=== PATIENT | male | born 1980 | race Caucasian/White ===

== ENCOUNTER 2016-07-01 12:39 | Emergency (ER) | payer MEDICAID, OTHER ==
[2016-07-01 12:57] VITALS: BP 155/95
--- NOTE | 2016-07-01 13:24 | UC ---
Ear Complaint HPI - HPI Summary HPI Summary: 3-4 weeks ago pt developed flu-like illness with fever x 4 days, cough, nasal congestion, n/v/d, and body aches. Most symptoms gradually improved over 1-2 weeks, but continues to have PND with laryngitis and R ear feeling plugged. Hx of wax problems in R ear. - History of Current Complaint Chief Complaint: UCRespiratory Stated Complaint: EAR PAIN SORE THROAT Time Seen by Provider: 07/01/16 12:57 Hx Obtained From: Patient Onset/Duration: Gradual Onset, Lasting Weeks Severity Initially: Moderate Severity Currently: Mild Associated Signs/Symptoms: Positive: Hearing Loss, URI Symptoms - Allergies/Home Medications Allergies/Adverse Reactions: Allergies Allergy/AdvReac Type Severity Reaction Status Date / Time Eggs or Egg-derived Products Allergy GI Upset Verified 07/01/16 12:58 Home Medications: Home Medications Bcpjmwe-Mrrludsvceajo-Zzxcieoi [Excedrin Extra Strength] 1 tab PO 07/01/16 [ History] PMH/Surg Hx/FS Hx/Imm Hx Endocrine History Of: Denies: Diabetes, Thyroid Disease Cardiovascular History Of: Denies: Cardiac Disorders, Hypertension Respiratory History Of: Denies: COPD, Asthma GI/ History Of: Denies: Ulcer - Surgical History Surgical History: Yes Surgery Procedure, Year, and Place: t&a. wisdom teeth - Family History Known Family History: Negative: Blood Disorder - Social History Alcohol Use: Weekly Alcohol Amount: x1 Substance Use Type: None Substance Use Comment - Amount & Last Used: once monthly Smoking Status (MU): Never Smoked Tobacco Review of Systems Constitutional: Negative Skin: Negative Eyes: Negative ENT: Ear Ache, Nasal Discharge Respiratory: Negative Cardiovascular: Negative Gastrointestinal: Negative Genitourinary: Negative Motor: Negative Neurovascular: Negative Musculoskeletal: Negative Neurological: Negative Psychological: Negative All Other Systems Reviewed And Are Negative: Yes Physical Exam Triage Information Reviewed: Yes Appearance: Well-Appearing, No Pain Distress, Well-Nourished Vital Signs: Initial Vital Signs Temp 99.2 F 07/01/16 12:54 Pulse 89 07/01/16 12:54 Resp 18 07/01/16 12:54 BP 155/95 07/01/16 12:54 Pulse Ox 99 07/01/16 12:54 Vital Signs Reviewed: Yes Eye Exam: Normal Eyes: Positive: Conjunctiva Clear ENT: Positive: Hearing grossly normal, Pharynx normal, Nasal congestion, TMs normal - post flush, Other: - R cerumen impaction Neck exam: Normal Respiratory Exam: Normal Respiratory: Positive: Chest non-tender, Lungs clear, Normal breath sounds, No respiratory distress, No accessory muscle use Cardiovascular Exam: Normal Cardiovascular: Positive: RRR, No Murmur Musculoskeletal Exam: Normal Neurological Exam: Normal Psychological Exam: Normal Skin Exam: Normal Ear Complaint Course/Dx - Differential Dx/Diagnosis Provider Diagnoses: cerumen impaction. sinusitis Discharge - Discharge Plan Condition: Stable Disposition: HOME Prescriptions: Mometasone NASAL (NF) [Nasonex (NF)] 2 spray BOTH NARES DAILY #1 nasal.spr Patient Education Materials: Cerumen Impaction (ED), Rhinosinusitis (ED) Additional Instructions: If you do not feel some improvement over the next 2 weeks, please call or return for re-evaluation. If you have increasing pain, fever, or facial swelling you may need antibiotics. If that happens you should return right away.
== END 2016-07-01 13:59 | disposition home or self-care (01) ==
LOC: UCEAST 12:39
DX: J32.9 Chronic sinusitis, unspecified (principal); H61.21 Impacted cerumen, right ear
CPT/HCPCS: 99213; G0463

== ENCOUNTER 2016-08-09 09:13 | Emergency (ER) | payer MEDICAID ==
--- NOTE | 2016-08-09 11:04 | UC ---
Jose Adhikari Salem, scribed for Jayne Sheehan MD on 08/09/16 at 1051 . Bite Injury/Animal HPI - HPI Summary HPI Summary: Patient is 35 y/o male who presents to the with deer tick bites since yesterday. He states that he found 3 ticks attached to his lateral abd and pulled them off with tweezers. He also found an additional 14 in his pants. He states that the ticks could not have been on him for more than 1 hour. Thery were all small, none were engorged. No bleeding from site of tick removal. No h/o lymes. He also states that he was in the [place] for a total of 6 hours yesterday and that he will be in the ortiz for the next 5 weeks. Pt works in the [employer] industry. He denies fever, chills, nausea, but reports high bp for the first time.However, pt found out that he was going to be a father yesterday night. He denies taking any medication and states that he is allergic to anything that has egg in it. Patients medication reviewed this visit. - History of Current Complaint Chief Complaint: UCSkin Stated Complaint: TICK BITE Time Seen by Provider: 08/09/16 10:41 Hx Obtained From: Patient Severity Currently: Moderate Severity Initially: Moderate Onset/Duration: Gradual Onset, Lasting Days Type of Bite: Animal - Tick. Has Animal Been Immunized?: N/A Aggravating Factor(s): Nothing Alleviating Factor(s): Nothing Associated Signs And Symptoms: Negative: Fever - Allergies/Home Medications Allergies/Adverse Reactions: Allergies Allergy/AdvReac Type Severity Reaction Status Date / Time Eggs or Egg-derived Products Allergy GI Upset Verified 08/09/16 09:41 Home Medications: Home Medications NK [No Home Medications Reported] 08/09/16 [History Confirmed 08/09/16] PMH/Surg Hx/FS Hx/Imm Hx Previously Healthy: Yes Endocrine History Of: Denies: Diabetes, Thyroid Disease Cardiovascular History Of: Denies: Cardiac Disorders, Hypertension Respiratory History Of: Denies: COPD, Asthma GI/ History Of: Denies: Ulcer - Surgical History Surgical History: Yes Surgery Procedure, Year, and Place: t&a. wisdom teeth - Family History Known Family History: Negative: Blood Disorder - Social History Occupation: Employed Full-time Alcohol Use: Weekly Alcohol Amount: x1 Substance Use Type: None Substance Use Comment - Amount & Last Used: once monthly Smoking Status (MU): Never Smoked Tobacco Review of Systems Constitutional: Other - Tick bites. Skin: Other - tick bites Eyes: Negative ENT: Negative Respiratory: Negative Cardiovascular: Negative Gastrointestinal: Negative Genitourinary: Negative Motor: Negative Neurovascular: Negative Musculoskeletal: Negative Neurological: Negative Psychological: Negative All Other Systems Reviewed And Are Negative: Yes Physical Exam Triage Information Reviewed: Yes Appearance: Well-Appearing, No Pain Distress, Well-Nourished Vital Signs: Initial Vital Signs Temp 97.7 F 08/09/16 09:38 Pulse 70 08/09/16 09:38 Resp 20 08/09/16 09:38 BP 153/105 08/09/16 09:38 Pulse Ox 100 08/09/16 09:38 Vital Signs Reviewed: Yes Eye Exam: Normal Eyes: Positive: Conjunctiva Clear ENT Exam: Normal ENT: Positive: TMs normal Dental Exam: Normal Neck exam: Normal Neck: Positive: Supple Respiratory Exam: Normal Respiratory: Positive: Chest non-tender, Lungs clear Cardiovascular Exam: Normal Cardiovascular: Positive: RRR, No Murmur, Pulses Normal Abdominal Exam: Normal Abdomen Description: Positive: Nontender, No Organomegaly, Soft Bowel Sounds: Positive: Present Musculoskeletal Exam: Normal Neurological Exam: Normal Neurological: Positive: Alert Psychological Exam: Normal Skin Exam: Normal Skin: Positive: Other - no wounds, rashes, no attached ticks Bite Injury Course/Dx - Course Course Of Treatment: Blood pressure noted and patient informed to follow up with PCP - will give him a referral . Pt with tick bite exposure yesterday- none > 1 hour, none engorged - Differential Dx/Diagnosis Provider Diagnoses: tick bite exposure Discharge - Discharge Plan Condition: Stable Disposition: HOME Patient Education Materials: Tick Bite (ED), Hypertension (ED) Referrals: [facility]IAN REFERRAL [Outside] No Primary Care Phys,NOPCP [Primary Care Provider] - Additional Instructions: Lyme disease is not typically transmitted unless a tick has been attached for 48 hours. Ticks become engorged with blood and large over the course of this time. It is recommended you keep all skin surfaces covered if you are in a wooded area or working in high grasses or weeds Have someone thoroughly check your skin for ticks when you come in from outside - take of your clothing in one location and place immediately in the laundry Your blood pressure was high today. It is recommended you follow this closely - you have been given a referral to the physician referral center - they will assist with scheduling follow up with a primary care provider You should return to the emergency department if you develop headaches, vision changes, shortness of breath, chest pain or any other concerning symptoms The documentation as recorded by the Jose barr Salem accurately reflects the service I personally performed and the decisions made by me, Jayne Sheehan MD.
[2016-08-09 11:05] VITALS: BP 154/99
== END 2016-08-09 11:03 | disposition home or self-care (01) ==
LOC: UCEAST 09:13
DX: S30.861A Insect bite (nonvenomous) of abdominal wall, initial encounter (principal); W57.XXXA Bitten or stung by nonvenomous insect and other nonvenomous arthropods, initial encounter; Z91.012 Allergy to eggs
CPT/HCPCS: 99212; G0463

== ENCOUNTER 2016-09-08 09:38 | Emergency (ER) | payer MEDICAID ==
[2016-09-08] MEDS ORDERED: Ibuprofen TAB* 400 MG PO ONE (11:07)
--- NOTE | 2016-09-08 11:53 | RAD ---
INDICATION: Right hip pain COMPARISON: None TECHNIQUE: An AP standing view of the pelvis and AP views of the hip in neutral and abducted position were obtained FINDINGS: Bones: There are no acute bony findings. Joint spaces: The hips articulate normally. The joint spaces are preserved. SI joints/symphysis: The SI joints and symphysis are intact. Other: None IMPRESSION: NO ACUTE BONY FINDINGS.
--- NOTE | 2016-09-08 11:57 | RAD ---
Indication: Pain following repetitive digging. Comparison: August 16, 2012 Technique: RIGHT knee: AP, tunnel, lateral, sunrise views. Report: Negative for effusion, fracture, malalignment, or abnormal soft tissue contour. Preserved joint spaces. IMPRESSION: Negative exam.
[2016-09-08 12:23] VITALS: BP 157/95
--- NOTE | 2016-09-09 19:07 | UC ---
Anthony Adhikari Matthew, scribed for Sherrie Daly MD on 09/08/16 at 1208 . Hip/Pelvis Pain - HPI Summary HPI Summary: A 35 y/o male presents to with right hip and knee pain since 3 days ago, which "flares up" every 9 hours. The pain is constantly rated 3/10 and 9/10 at its worst. The pain radiates into the muscles of the right leg. The patient states that he did a lot of physical activity while planting a garden and timmy over 3 days last week. He planted ~150 grape tia. He states during the planting he was on his knees constantly. His right knee now "pops". He sprained is right knee 9 years ago, which popped initially after the sprain and then resolved until 3 days ago. The hip pain is worse with rotation of the leg. Associated symptoms include right leg muscle pain. He denies back pain and numbness/tingling. He's been taking ibuprofen and acetaminophen, which has been relieving the pain. No Hx of DVT or blood clots. FHx of HTN and hemochromatosis. He also states that after grad school where he sat for extended periods of time, he now develops right groin pain after sitting for more than 3 hours. - History Of Current Complaint Chief Complaint: UCLowerExtremity Stated Complaint: LEG COMPLAINT Hx Obtained From: Patient Onset/Duration: Gradual Onset, Lasting Days, Still Present Timing: Constant Severity Initially: Mild Severity Currently: Mild Pain Intensity: 3 Pain Scale Used: 0-10 Numeric Character Of Pain: Throbbing Aggravating Factor(s): Movement Alleviating Factor(s): OTC Medications - ibuprofen and acetaminophen Associated Signs And Symptoms: Positive: Knee Pain, Other - Right Hip Pain; Right hamstring pain - Risk Factors Septic Arthritis Risk Factor: Negative - Allergies/Home Medications Allergies/Adverse Reactions: Allergies Allergy/AdvReac Type Severity Reaction Status Date / Time Eggs or Egg-derived Products Allergy GI Upset Verified 08/09/16 09:41 Home Medications: Home Medications Acetaminophen [Acetaminophen Extra Stren] 09/08/16 [History] Ibuprofen TAB* [Advil TAB*] 600 mg PO BID 09/08/16 [History] PMH/Surg Hx/FS Hx/Imm Hx Previously Healthy: Yes Endocrine History Of: Denies: Diabetes, Thyroid Disease Cardiovascular History Of: Denies: Cardiac Disorders, Hypertension Respiratory History Of: Denies: COPD, Asthma GI/ History Of: Denies: Ulcer - Surgical History Surgical History: Yes Surgery Procedure, Year, and Place: t&a. wisdom teeth - Family History Known Family History: Positive: Hypertension Negative: Blood Disorder Family History: FHx of HTN and hemochromatosis. - Social History Alcohol Use: Weekly Alcohol Amount: x1 Substance Use Type: None Substance Use Comment - Amount & Last Used: once monthly Smoking Status (MU): Never Smoked Tobacco Review of Systems Constitutional: Negative Skin: Negative Eyes: Negative ENT: Negative Respiratory: Negative Cardiovascular: Negative Gastrointestinal: Negative Genitourinary: Negative Motor: Negative Neurovascular: Negative Musculoskeletal: Arthralgia - RT knee pain; Right Hip Pain, Myalgia - RT hamstring pain Neurological: Negative Psychological: Negative All Other Systems Reviewed And Are Negative: Yes Physical Exam Triage Information Reviewed: Yes Appearance: Well-Appearing, Well-Nourished, Pain Distress - mild Vital Signs: Initial Vital Signs Temp 97.7 F 09/08/16 10:01 Pulse 79 09/08/16 10:01 Resp 16 09/08/16 10:01 BP 142/84 09/08/16 10:01 Pulse Ox 98 09/08/16 10:01 Vital Signs Reviewed: Yes Eyes: Positive: Conjunctiva Clear ENT: Positive: Normal ENT inspection Neck: Positive: Supple Respiratory: Positive: Chest non-tender, Lungs clear, Normal breath sounds, No respiratory distress Cardiovascular: Positive: RRR, No Murmur, Pulses Normal, Brisk Capillary Refill Musculoskeletal: Positive: Strength Intact, ROM Intact, Other: - lateral greater trochanter tenderness; no erythema or crepitus; no swelling or warmth; ligaments of the left knee are stable; 2+ distal pulses. Neurological: Positive: Alert, Muscle Tone Normal Psychological Exam: Normal Skin Exam: Normal Diagnostics - Radiology Hip/Pelvis XR Xray Interpretation: No Acute Changes - IMPRESSION: NO ACUTE BONY FINDINGS. Radiology Interpretation Completed By: Radiologist Right Knee XR Xray Interpretation: No Acute Changes - IMPRESSION: Negative exam. Radiology Interpretation Completed By: Radiologist Hip Injury Course/Dx - Course Course Of Treatment: Pt medications reviewed this visit. - Differential Dx/Diagnosis Differential Diagnosis/HQI/PQRI: Arthritis, Bursitis, Sprain, Strain Provider Diagnoses: right hip bursitis. right leg pain. right knee sprain Discharge - Discharge Plan Condition: Stable Disposition: HOME Prescriptions: Ibuprofen TAB* [Motrin TAB* 600 MG] 600 mg PO Q6H PRN #40 tab PRN Reason: Pain Patient Education Materials: Knee Sprain (ED), Hip Bursitis (ED), Ibuprofen ( By mouth) Forms: *Work Release Referrals: [facility] [place] [facility] [Outside] - 2 Days Darron Gordon MD [Medical Doctor] - 1 Week Additional Instructions: Please get established with a primary care physician and orthopedics. RETURN TO URGENT CARE FOR ANY NEW OR WORSENING SYMPTOMS Thank you for helping us improve patient care by filling out the [facility] [place]. The documentation as recorded by the Anthony barr Matthew accurately reflects the service I personally performed and the decisions made by Addy esquivel Barbara J, MD.
== END 2016-09-08 12:47 | disposition home or self-care (01) ==
LOC: UCEAST 09:38
DX: M70.71 Other bursitis of hip, right hip (principal); Y93.9 Activity, unspecified; S83.91XA Sprain of unspecified site of right knee, initial encounter; X50.3XXA Overexertion from repetitive movements, initial encounter; Y93.89 Activity, other specified; Y92.89 Other specified places as the place of occurrence of the external cause; M79.604 Pain in right leg
CPT/HCPCS: 99212; A9270-GY; G0463

== ENCOUNTER 2016-09-16 13:32 | Emergency (ER) | payer MEDICAID, OTHER ==
[2016-09-16 13:41] VITALS: BP 127/77
--- NOTE | 2016-09-16 14:18 | UC ---
Skin Complaint HPI - HPI Summary HPI Summary: Has been having night sweats for about a week, and noticing red spots on arms, legs, and abd/back. Has been working outside a lot lately. Also having lots of nasal congestion and allergy symptoms. - History of Current Complaint Chief Complaint: UCSkin Time Seen by Provider: 09/16/16 14:04 Stated Complaint: RASH Hx Obtained From: Patient Onset/Duration: Gradual Onset, Lasting Days Timing: Constant Onset Severity: Mild Current Severity: Moderate Location: Diffuse Character: Redness Aggravating: Nothing Alleviating: Nothing Associated Signs & Symptoms: Positive: Fever, Chills - Allergy/Home Medications Allergies/Adverse Reactions: Allergies Allergy/AdvReac Type Severity Reaction Status Date / Time Eggs or Egg-derived Products Allergy GI Upset Verified 09/16/16 13:41 Home Medications: Home Medications Homeopathic Products [Zicam Allergy Relief] 4 spray NASAL BID 09/16/16 [History Confirmed 09/16/16] Review of Systems Constitutional: Fever, Chills Skin: Rash Eyes: Negative ENT: Nasal Discharge Respiratory: Negative Cardiovascular: Negative Gastrointestinal: Negative Genitourinary: Negative Motor: Negative Neurovascular: Negative Musculoskeletal: Negative Neurological: Negative Psychological: Negative All Other Systems Reviewed And Are Negative: Yes PMH/Surg Hx/FS Hx/Imm Hx Endocrine History Of: Denies: Diabetes, Thyroid Disease Cardiovascular History Of: Denies: Cardiac Disorders, Hypertension Respiratory History Of: Denies: COPD, Asthma GI/ History Of: Denies: Ulcer - Surgical History Surgical History: Yes Surgery Procedure, Year, and Place: t&a. wisdom teeth - Family History Known Family History: Positive: Hypertension Negative: Blood Disorder Family History: FHx of HTN and hemochromatosis. - Social History Lives: With Family Alcohol Use: Weekly Alcohol Amount: x1 Substance Use Type: None Substance Use Comment - Amount & Last Used: once monthly Smoking Status (MU): Never Smoked Tobacco Physical Exam Triage Information Reviewed: Yes Appearance: No Pain Distress, Obese Vital Signs: Initial Vital Signs Temp 98.3 F 09/16/16 13:36 Pulse 95 09/16/16 13:36 Resp 16 09/16/16 13:36 BP 127/77 09/16/16 13:36 Pulse Ox 100 09/16/16 13:36 Vital Signs Reviewed: Yes Eye Exam: Normal Eyes: Positive: Conjunctiva Clear ENT: Positive: Pharynx normal, Nasal congestion, Nasal drainage, TMs normal. Negative: Tonsillar swelling, Tonsillar exudate Dental Exam: Normal Neck exam: Normal Neck: Positive: Supple, Nontender, No Lymphadenopathy Respiratory Exam: Normal Respiratory: Positive: Chest non-tender, Lungs clear, Normal breath sounds, No respiratory distress, No accessory muscle use Cardiovascular Exam: Normal Cardiovascular: Positive: RRR, No Murmur Musculoskeletal Exam: Normal Neurological Exam: Normal Psychological Exam: Normal Skin Exam: Other - multiple flat oval lesions with central clearing on arms, legs, abd, and back, ranging in size from 3cm - 20cm Course/Dx - Diagnoses Provider Diagnoses: Lyme infection. allergic rhinitis Discharge - Discharge Plan Condition: Stable Disposition: HOME Prescriptions: Cetirizine* [ZyrTEC 10 MG TAB*] 10 mg PO DAILY #30 tab DOXYcycline CAP(*) [DOXYcycline 100MG CAP(*)] 100 mg PO BID #28 cap Patient Education Materials: Lyme Disease (ED), Allergic Rhinitis (ED) Referrals: No Primary Care Phys,NOPCP [Primary Care Provider] - Additional Instructions: If your symptoms are not mostly resolved within the next 2 weeks, please return here for a recheck.
== END 2016-09-16 14:19 | disposition home or self-care (01) ==
LOC: UCEAST 13:32
DX: A69.20 Lyme disease, unspecified (principal); J30.9 Allergic rhinitis, unspecified
CPT/HCPCS: 99212; G0463

== ENCOUNTER → 2017-01-22 11:03 | Emergency (ER) | payer OTHER ==
[~2017-01-22 11:03] MED LIST: Tetan/Diph/Pertus SYR(Tdap)* 0.5 ML SYR(BOOSTRIX) use SYR IM ONE
[2017-01-22 11:14] VITALS: BP 142/103
--- NOTE | 2017-01-22 14:00 | ED ---
Laceration/Wound HPI - HPI Summary HPI Summary: Patient presents to the ED with CC of laceration to the right thumb. He notes to a serrated knife to the base of the nail of the right thumb 1 hour prior to arrival. Bleeding is controlled at this time. Nail and nail bed are both intact. Pulses +2 bilaterally and cap refill < 2 sec. 2/10 pain constant and throbbing. Denies blood thinners. He is able to have full ROM. Denies numbness, tingling, temperature or color changes to the area. - History of Current Complaint Stated Complaint: RT HAND /FINGER LAC Time Seen by Provider: 01/22/17 12:22 Hx Obtained From: Patient Mechanism of Injury: Sharp/Blunt Trauma Onset/Duration: Sudden Onset Aggravating: Movement Alleviating: Compression Timing: Constant Onset Severity: Mild Current Severity: Mild Pain Intensity: 6 Pain Scale Used: 0-10 Numeric - Allergy/Home Medications Allergies/Adverse Reactions: Allergies Allergy/AdvReac Type Severity Reaction Status Date / Time Eggs or Egg-derived Products Allergy GI Upset Verified 09/16/16 13:41 PMH/Surg Hx/FS Hx/Imm Hx Previously Healthy: Yes Endocrine/Hematology History: Denies: Hx Diabetes, Hx Thyroid Disease Cardiovascular History: Denies: Hx Hypertension Respiratory History: Denies: Hx Asthma, Hx Chronic Obstructive Pulmonary Disease (COPD) GI History: Denies: Hx Ulcer - Surgical History Surgery Procedure, Year, and Place: t&a. wisdom teeth - Immunization History Hx Pertussis Vaccination: No Immunizations Up to Date: Unable to Obtain/Confirm Infectious Disease History: No Infectious Disease History: Denies: Hx Clostridium Difficile, Hx Hepatitis, Hx Human Immunodeficiency Virus (HIV), Hx of Known/Suspected MRSA, Hx Shingles, Hx Tuberculosis, Hx Known/ Suspected VRE, Hx Known/Suspected VRSA, History Other Infectious Disease, Traveled Outside the [place] in Last 30 Days - Family History Known Family History: Positive: Hypertension Negative: Blood Disorder Family History: FHx of HTN and hemochromatosis. - Social History Occupation: Employed Full-time Lives: With Family Alcohol Use: Weekly Alcohol Amount: x1 Hx Substance Use: No Substance Use Type: Reports: None Substance Use Comment - Amount & Last Used: once monthly Hx Tobacco Use: No Smoking Status (MU): Never Smoked Tobacco Review of Systems Constitutional: Negative Negative: Fever, Chills, Fatigue Eyes: Negative Cardiovascular: Negative Respiratory: Negative Genitourinary: Negative Positive: no symptoms reported, see HPI Musculoskeletal: Negative Positive: Other - laceration Neurological: Negative All Other Systems Reviewed And Are Negative: Yes Physical Exam Triage Information Reviewed: Yes Vital Signs On Initial Exam: Initial Vitals Temp Pulse Resp BP Pulse Ox 98.6 F 74 16 142/103 100 01/22/17 11:11 01/22/17 11:11 01/22/17 11:11 01/22/17 11:11 01/22/17 11:11 Vital Signs Reviewed: Yes Appearance: Positive: Well-Appearing, Well-Nourished Skin: Positive: Warm, Skin Color Reflects Adequate Perfusion, Other - laceration Head/Face: Positive: Normal Head/Face Inspection Eyes: Positive: EOMI, KELLY, Conjunctiva Clear Neck: Positive: Supple, No Lymphadenopathy Respiratory/Lung Sounds: Positive: Clear to Auscultation, Breath Sounds Present Cardiovascular: Positive: Normal, RRR, Pulses are Symmetrical in both Upper and Lower Extremities Musculoskeletal: Positive: Normal, Strength/ROM Intact Neurological: Positive: Sensory/Motor Intact, Alert, Oriented to Person Place, Time, Speech Normal Psychiatric: Positive: Normal - Anne Coma Scale Coma Scale Total: 15 Diagnostics - Vital Signs Vital Signs Temp Pulse Resp BP Pulse Ox 01/22/17 11:11 98.6 F 74 16 142/103 100 - Laboratory Lab Statement: Any lab studies that have been ordered have been reviewed, and results considered in the medical decision making process. Laceration Repair Course/Dx - Course Course Of Treatment: Patient evaluated for a 1.5cm laceration - superficial to the right base of the thumb. No sutures are required. Wound was cleansed and soaked. Applied adhesive glue to the area with relief. Gauze wrapped. Tetanus updated. Return precautions given. - Differential Dx Differental Diagnoses: Abrasion, Laceration, Puncture Wound, Suture Removal - Clinical Impression Provider Diagnoses: Laceration of right thumb Discharge - Discharge Plan Condition: Stable Disposition: HOME Patient Education Materials: Skin Adhesive Care (ED) Referrals: No Primary Care Phys,NOPCP [Primary Care Provider] - Additional Instructions: Follow up with PCP only as needed Keep the bandage applied for 24 hours, then remove and leave the wound open to air You should be able to use the digit after 24 hours without compromise. If you develop redness, streaks of red around the wound, swelling, abnormal drainage or you develop a fever - you need to come back to the ED right away. Images - Images Hands: 1 - 1.5cm laceration - superifical
== END | disposition home or self-care (01) ==
LOC: ED 11:03
DX: S61.011A Laceration without foreign body of right thumb without damage to nail, initial encounter (principal); W26.0XXA Contact with knife, initial encounter; Y92.9 Unspecified place or not applicable
CPT/HCPCS: 90471; 90715; 99282

== ENCOUNTER 2017-08-24 07:43 | Emergency (ER) | payer SELFPAY ==
[2017-08-24 08:00] VITALS: BP 140/102
--- NOTE | 2017-08-24 10:13 | UC ---
Amy Adhikari Julia, scribed for Karin Antunez DO on 08/24/17 at 0854 . Skin Complaint HPI - HPI Summary HPI Summary: This patient is a 36 year old M presenting to [facility] [place] due to multiple tick bites occurring on 08/22/17 while working in [employer]. He states he found a tick on his stomach and removed it immediately. Last year he reports Lyme disease from a tick bite Pt additionally c/o poision jaki reaction on his bilateral hands and groin area beginning yesterday. - History of Current Complaint Chief Complaint: UCSkin Time Seen by Provider: 08/24/17 08:43 Stated Complaint: TICK BITE Hx Obtained From: Patient Onset/Duration: Sudden Onset, Lasting Days Skin Exposure Onset/Duration: Days Ago Pain Intensity: 0 Location: Hand (Right), Hand (Left) Character: Pruritus, Redness Related History: Insect Bite/Sting - Allergy/Home Medications Allergies/Adverse Reactions: Allergies Allergy/AdvReac Type Severity Reaction Status Date / Time Egg Derived Allergy GI Upset Verified 08/24/17 07:51 Review of Systems Skin: Rash - bilateral hands Respiratory: Negative Cardiovascular: Negative All Other Systems Reviewed And Are Negative: Yes PMH/Surg Hx/FS Hx/Imm Hx Previously Healthy: Yes - Surgical History Surgical History: Yes Surgery Procedure, Year, and Place: t&a. wisdom teeth - Family History Known Family History: Positive: Hypertension Negative: Blood Disorder Family History: FHx of HTN and hemochromatosis. - Social History Alcohol Use: Weekly Alcohol Amount: x1 Substance Use Type: None Substance Use Comment - Amount & Last Used: once monthly Smoking Status (MU): Light Every Day Tobacco Smoker Type: Cigarettes Amount Used/How Often: smokes 6-7 cigarettes 1 day per week, Household Exposure Type: Cigarettes Physical Exam - Summary Physical Exam Summary: Appearance: Well-Appearing, No Pain Distress, Well-Nourished Eyes: conjunctiva clear, no discharge ENT: Hearing grossly normal, no muffled/hoarse voice. Neck: Normal, Supple Respiratory/Lung Sounds: Lungs clear, Normal breath sounds, No respiratory distress, No accessory muscle use Cardiovascular: RRR, No murmur Abdomen Nontender, Soft, no guarding, not distended Bowel Sounds (if she checks): Present Musculoskeletal: Normal Neurological: Alert, muscle tone normal Psychiatric:Normal, age appropriate behavior Skin: Warm, Dry, Normal color, There is a Erythematous rash on bilateral hands with associated blistering and weeping, rash over groin area Triage Information Reviewed: Yes Vital Signs: Initial Vital Signs Temp 97.5 F 08/24/17 07:52 Pulse 86 08/24/17 07:52 Resp 16 08/24/17 07:52 BP 140/102 08/24/17 07:52 Pulse Ox 98 08/24/17 07:52 Vital Signs Reviewed: Yes Course/Dx - Course Course Of Treatment: 36 y/o M presents c/o pruitic rash to the bilateral hands and groin area due to poision jaki exposure. Pt reports a recent tick bite to [facility] abdomen as well. Pt reports previous Lyme disease due to tick bite. Pt is instructed that is groin rash persists with steroid use it may be due to a yeast infection. - Diagnoses Provider Diagnoses: poison jaki, tick bite Discharge - Sign-Out/Discharge Documenting (check all that apply): Discharge/Admit/Transfer - Discharge Plan Condition: Stable Disposition: HOME Prescriptions: predniSONE TAB* [Deltasone TAB*] 10 mg PO DAILY #36 tab Patient Education Materials: Poison Jaki (ED), Tick Bite (ED) Referrals: No Primary Care Phys,NOPCP [Primary Care Provider] - [facility] [place] [facility]IAN REFERRAL [Outside] Additional Instructions: CORTICOSTEROID MEDICATION: You have been given a medicine of the cortisone class. This medication is used to control inflammation or allergy. It is usually only given for a short period of time, until the acute process subsides. There are usually no side effects from short-term use of cortisone-like medications. Some persons feel an increased sense of well-being and are not sleepy at bedtime. Long-term use of cortisone medications is best avoided, unless required for a severe condition. If your condition does not remit, or relapses after the course of corticosteroid medication, you should consult your physician. Contact the physician if you develop lightheadedness, black or tarry stools , swelling of the legs, or significant rapid change in weight. If groin rash gets worse with steroid use, rash is more likely to a result of a yeast infection. - Billing Disposition and Condition Condition: STABLE Disposition: HOME The documentation as recorded by the Amy barr Julia accurately reflects the service I personally performed and the decisions made by me, Karin Antunez DO.
== END 2017-08-24 09:52 | disposition home or self-care (01) ==
LOC: UCEAST 07:43
DX: S30.861A Insect bite (nonvenomous) of abdominal wall, initial encounter (principal); W57.XXXA Bitten or stung by nonvenomous insect and other nonvenomous arthropods, initial encounter; Y93.H9 Activity, other involving exterior property and land maintenance, building and construction; Y92.9 Unspecified place or not applicable; L23.7 Allergic contact dermatitis due to plants, except food; F17.210 Nicotine dependence, cigarettes, uncomplicated
CPT/HCPCS: 99212; G0463

== ENCOUNTER 2017-09-30 14:43 | Emergency (ER) | payer SELFPAY ==
[2017-09-30 15:02] VITALS: BP 151/88
--- NOTE | 2017-09-30 15:43 | UC ---
Back Pain HPI - HPI Summary HPI Summary: Jeferson reference [id number]---uz rx.... Patient with chief complaint of lumbar back pain worsening over the past 7 days or so did notice a rash on the left side of his lumbar spine. 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 - History of Current Complaint Hx Obtained From: Patient Onset/Duration: Sudden Onset, Lasting Days, Still Present Timing: Constant Pain Intensity: 6 Pain Scale Used: 0-10 Numeric Back Pain: Is Discrete @ - lumar spine and left side of back Character: Aching, Stiffness Aggravating Factor(s): Nothing Alleviating Factor(s): Nothing Associated Signs And Symptoms: Positive: Negative <Cris Mejia - Last Filed: 09/30/17 17:33> <Jayne Sheehan - Last Filed: 10/01/17 08:18> - History of Current Complaint Chief Complaint: UCBackPain Stated Complaint: BACK PAIN Time Seen by Provider: 09/30/17 15:38 - Allergies/Home Medications Allergies/Adverse Reactions: Allergies Allergy/AdvReac Type Severity Reaction Status Date / Time Egg Derived Allergy GI Upset Verified 09/30/17 14:54 PMH/Surg Hx/FS Hx/Imm Hx Previously Healthy: Yes - Surgical History Surgical History: Yes Surgery Procedure, Year, and Place: t&a. wisdom teeth - Family History Known Family History: Positive: Hypertension Negative: Blood Disorder Family History: FHx of HTN and hemochromatosis. - Social History Occupation: Works From/At Home Lives: With Family Alcohol Use: Occasionally Alcohol Amount: x1 Substance Use Type: None Substance Use Comment - Amount & Last Used: once monthly Smoking Status (MU): Light Every Day Tobacco Smoker Type: Cigarettes Amount Used/How Often: smokes 6-7 cigarettes 1 day per week, Household Exposure Type: Cigarettes <Cris Mejia - Last Filed: 09/30/17 17:33> Review of Systems Constitutional: Negative Skin: Negative Eyes: Negative ENT: Negative Respiratory: Negative Cardiovascular: Negative Gastrointestinal: Negative Genitourinary: Negative Motor: Negative Neurovascular: Negative Musculoskeletal: Arthralgia - lumbar back pain Neurological: Negative Psychological: Negative Is Patient Immunocompromised?: No All Other Systems Reviewed And Are Negative: Yes <Cris Mejia - Last Filed: 09/30/17 17:33> Physical Exam Triage Information Reviewed: Yes Appearance: Well-Appearing, No Pain Distress, Well-Nourished Vital Signs: Initial Vital Signs Temp 99 F 09/30/17 14:55 Pulse 86 09/30/17 14:55 Resp 18 09/30/17 14:55 BP 151/88 09/30/17 14:55 Pulse Ox 100 09/30/17 14:55 Vital Signs Reviewed: Yes Eye Exam: Normal Eyes: Positive: Conjunctiva Clear ENT Exam: Normal ENT: Positive: Normal ENT inspection, Hearing grossly normal. Negative: Trismus , Muffled voice, Hoarse voice Dental Exam: Normal Neck exam: Normal Neck: Positive: Supple, Nontender Respiratory Exam: Normal Respiratory: Positive: Chest non-tender, No respiratory distress, No accessory muscle use Cardiovascular Exam: Normal Cardiovascular: Positive: RRR, Brisk Capillary Refill Abdomen Description: Negative: CVA Tenderness (R), CVA Tenderness (L) Musculoskeletal Exam: Normal Musculoskeletal: Positive: Strength Intact, ROM Intact, No Edema Neurological Exam: Normal Neurological: Positive: Alert, Muscle Tone Normal Psychological Exam: Normal Skin: Positive: rashes - 7 x1 area of erythema lubar left side of back <Cris Mejia - Last Filed: 09/30/17 17:33> Vital Signs: Initial Vital Signs Temp 99 F 09/30/17 14:55 Pulse 86 09/30/17 14:55 Resp 18 09/30/17 14:55 BP 151/88 09/30/17 14:55 Pulse Ox 100 09/30/17 14:55 <Jayne Sheehan - Last Filed: 10/01/17 08:18> Diagnostics - Radiology No standard instances Xray Interpretation: Positive (See Comments) - Patient Name: CECILLE SANCHEZ Medical Record#: [id number] Ordering Physician: Cris Mejia NP Acct.#: [id number] : 1980 Age: 36 Sex: M Location: [facility] Exam Date: 09/30/17 1547 ADM Status: REG ER Order Information: SP LUMBARSACRAL 4 + VWS Accession Number: [id number] CPT: 42246 Indication: Back pain. 5 views of lumbar spine demonstrate vertebral bodies to be normal in height. Disc spaces all well- preserved. Pedicles appear intact. IMPRESSION: Unremarkable lumbar spine series. < Electronically signed by Leida Timmons MD in OV> 09/30/17 162 Dictated By: Leida Timmons MD Dictated Date/Time: 09/30/17 162 Transcribed Date/Time: 09/30/17 162 Copy to: CC:Kay Devries MD; Cris Mejia BILLING REPRESENTATIVE; No Primary Care Phys, NOPCP Imaging - [facility] Imaging - [facility] Imaging - [facility] [address] [place] [address] ph [phone] ph ([phone]) ph ([phone]) of Radiology Interpretation Completed By: ED Physician, Radiologist <Cris Mejia - Last Filed: 09/30/17 17:33> Back Pain Course/Dx - Course Course Of Treatment: Doxycycline, low back exercises, follow with pcp prn - Differential Dx/Diagnosis Provider Diagnoses: lumbar pain, tick exposure, Lyme <Cris Mejia - Last Filed: 09/30/17 17:33> Discharge - Sign-Out/Discharge Documenting (check all that apply): Discharge/Admit/Transfer - Billing Disposition and Condition Condition: STABLE Disposition: Home <Cris Mejia - Last Filed: 09/30/17 17:33> - Billing Disposition and Condition Condition: STABLE Disposition: Home <Jayne Sheehan - Last Filed: 10/01/17 08:18> - Discharge Plan Condition: Stable Disposition: HOME Prescriptions: DOXYcycline CAP(*) [DOXYcycline 100MG CAP(*)] 100 mg PO BID #28 cap Patient Education Materials: Lyme Disease (ED), Hypertension (ED), Back Pain ( ED), Core Strengthening Exercises (GEN), Lower Back Exercises (ED) Referrals: [facility] [Outside] - 2 Weeks [facility] [place] [facility]IAN REFERRAL [Outside] - 2 Weeks Attestation Statement User Type: Provider - I was available for consult. This patient was seen by the HUNTER. The patient was not presented to, seen by, or examined by me. -Margo <Jayne Sheehan - Last Filed: 10/01/17 08:18>
--- NOTE | 2017-09-30 16:24 | RAD ---
Indication: Back pain. 5 views of lumbar spine demonstrate vertebral bodies to be normal in height. Disc spaces all well-preserved. Pedicles appear intact. IMPRESSION: Unremarkable lumbar spine series.
== END 2017-09-30 16:50 | disposition home or self-care (01) ==
LOC: UCEAST 14:43
DX: M54.5 Low back pain (principal); R21 Rash and other nonspecific skin eruption; A69.20 Lyme disease, unspecified; F17.210 Nicotine dependence, cigarettes, uncomplicated; Z91.012 Allergy to eggs
CPT/HCPCS: 72110; 99212; G0463

== ENCOUNTER 2017-10-20 01:23 | Emergency (ER) | payer SELFPAY ==
[2017-10-20] MEDS ORDERED: HYDROmorphone INJ* 2 MG/ML CARPUJECT SYRINGE IV SLOW PU ONE (01:32)
[2017-10-20] MEDS ORDERED: Ketorolac INJ* 30 MG/ML 1 ML VIAL IV PUSH ONE (01:32)
[2017-10-20] MEDS ORDERED: Metoclopramide IV* 5 MG/ML 2 ML VIAL IV SLOW PU ONE (01:32)
[2017-10-20] MEDS: NS 0.9% 1000 ML* 2,000 ML IV ONE ×2 (01:39→01:40)
[2017-10-20 01:58] LABS: ABS Basophils 0.1 10^3/ul (0-0.2); ABS Eosinophils 0.4 10^3/ul (0-0.6); ABS Monocytes 0.8 10^3/ul (0-0.8); ABS Neutrophils 3.5 10^3/ul (1.5-7.7); Hematocrit 45 % (42-52); Hemoglobin 16.4 g/dl (14.0-18.0); Mean Corpuscular HGB Conc 36 g/dl (31-36); Mean Corpuscular Hemoglobin 33 pg (27-31); Mean Corpuscular Volume 90 fL (80-94); Mean Platelet Volume 8.2 um3 (7.4-10.4); Platelet Count 265 10^3/ul (150-450); Red Blood Count 5.01 10^6/ul (4.00-5.40); Red Cell Distribution Width 13 % (10.5-15); White Blood Count 9.8 10^3/ul (3.5-10.8)
[2017-10-20 02:08] LABS: INR 0.85 (0.77-1.02)
[2017-10-20 02:10] LABS: EGFR Non-African American 48.7 (>60)
[2017-10-20 02:28] LABS: Eosinophil % 4.4 % (0-6); Lymphocyte % 50.9 % (25-47); Nucleated Red Blood Cells % 0.2
[2017-10-20 02:33] LABS: ABS Nucleated RBC 0 10^3/ul
[2017-10-20 03:07] LABS: Urine Appearance Clear; Urine Blood 1+ (Negative); Urine Color Straw; Urine Ketones Negative (Negative); Urine Protein Negative (Negative); Urine Urobilinogen Negative (Negative)
[2017-10-20] MEDS ORDERED: Tamsulosin CAP* 0.4 MG PO ONE (03:13)
[2017-10-20] MEDS ORDERED: Ondansetron ODT TAB* 4 MG SL PRN (03:37)
[2017-10-20] MEDS ORDERED: Ondansetron ODT TAB* 4 MG ONE (03:38)
[2017-10-20 04:12] VITALS: BP 144/89
--- NOTE | 2017-10-20 04:12 | ED ---
Susy Adhikari Emily, scribed for Leon Garcia MD on 10/20/17 at 0134 . Abdominal Pain/Male - HPI Summary HPI Summary: This patient is a 37 year old M presenting to [facility] accompanied by family with a chief complaint of R flank pain that began at 0100. The patient rates the pain 10/10 in severity. Symptoms aggravated by nothing. Symptoms alleviated by nothing. Patient reports nausea. Patient denies testicular pain. - History of Current Complaint Chief Complaint: EDFlankPain Stated Complaint: RIGHT SIDE PAIN Hx Obtained From: Patient Onset/Duration: Sudden Onset, Lasting Minutes Timing: Constant Severity Initially: Severe Severity Currently: Severe Pain Intensity: 10 Pain Scale Used: 0-10 Numeric Location: Flank Radiates: No Aggravating Factor(s): Nothing Alleviating Factor(s): Nothing Associated Signs And Symptoms: Positive: Nausea, Other - Negative testicular pain - Allergies/Home Medications Allergies/Adverse Reactions: Allergies Allergy/AdvReac Type Severity Reaction Status Date / Time Egg Derived Allergy GI Upset Verified 10/20/17 01:27 PMH/Surg Hx/FS Hx/Imm Hx Previously Healthy: Yes Endocrine/Hematology History: Denies: Hx Diabetes, Hx Thyroid Disease Cardiovascular History: Denies: Hx Hypertension - family hx Respiratory History: Denies: Hx Asthma, Hx Chronic Obstructive Pulmonary Disease (COPD) GI History: Denies: Hx Ulcer - Surgical History Surgery Procedure, Year, and Place: t&a. wisdom teeth Infectious Disease History: No Infectious Disease History: Denies: Hx Clostridium Difficile, Hx Hepatitis, Hx Human Immunodeficiency Virus (HIV), Hx of Known/Suspected MRSA, Hx Shingles, Hx Tuberculosis, Hx Known/ Suspected VRE, Hx Known/Suspected VRSA, History Other Infectious Disease, Traveled Outside the [place] in Last 30 Days - Family History Known Family History: Positive: Hypertension Negative: Blood Disorder Family History: FHx of HTN and hemochromatosis. - Social History Occupation: Unemployed Lives: With Family Alcohol Use: Occasionally Alcohol Amount: x1 Hx Substance Use: No Substance Use Type: Reports: None Substance Use Comment - Amount & Last Used: once monthly Hx Tobacco Use: No Smoking Status (MU): Light Every Day Tobacco Smoker Type: Cigarettes Amount Used/How Often: smokes 6-7 cigarettes 1 day per week, Review of Systems Positive: Nausea, Other - Positive R flank pain Genitourinary: Other - Negative testicular pain All Other Systems Reviewed And Are Negative: Yes Physical Exam - Summary Physical Exam Summary: VITAL SIGNS: Reviewed. GENERAL: Patient is a well-developed and nourished male who is lying comfortable in the stretcher. Patient is not in any acute respiratory distress. HEAD AND FACE: No signs of trauma. No ecchymosis, hematomas or skull depressions. No sinus tenderness. EYES: PERRLA, EOMI x 2, No injected conjunctiva, no nystagmus. EARS: Hearing grossly intact. Ear canals and tympanic membranes are within normal limits. MOUTH: Oropharynx within normal limits. NECK: Supple, trachea is midline, no adenopathy, no JVD, no carotid bruit, no c- spine tenderness, neck with full ROM. CHEST: Symmetric, no tenderness at palpation LUNGS: Clear to auscultation bilaterally. No wheezing or crackles. CVS: Regular rate and rhythm, S1 and S2 present, no murmurs or gallops appreciated. ABDOMEN: Soft, right CVA tenderness. No signs of distention. No rebound no guarding, and no masses palpated. Bowel sounds are normal. EXTREMITIES: FROM in all major joints, no edema, no cyanosis or clubbing. NEURO: Alert and oriented x 3. No acute neurological deficits. Speech is normal and follows commands. SKIN: Dry and warm Triage Information Reviewed: Yes Vital Signs On Initial Exam: Initial Vitals Temp Pulse Resp BP Pulse Ox 98.0 F 73 22 174/104 99 10/20/17 01:25 10/20/17 01:25 10/20/17 01:25 10/20/17 01:25 10/20/17 01:25 Vital Signs Reviewed: Yes Diagnostics - Vital Signs Vital Signs Temp Pulse Resp BP Pulse Ox 10/20/17 01:25 98.0 F 73 22 174/104 99 - Laboratory Result Diagrams: 10/20/17 01:45 10/20/17 01:45 Lab Statement: Any lab studies that have been ordered have been reviewed, and results considered in the medical decision making process. - CT CT abdomen and pelvis CT Interpretation Completed By: Radiologist - CT abdomen and pelvis reveals, per radiologist, 3 mm stone at right UVJ causing minimal hydronephrosis. 9 mm stone right kidney and punctate stone left kidney. Hepatomegaly. Unremarkable pancreas and gallbladder. No bowel obstruction, colitis, free fluid or free air. Normal appendix. Small umbilical hernia containing fat. Left inguinal lymphadenopathy, indeterminate. ED physician has reviewed this radiology report. Abdominal Pain Fem Course/Dx - Course Course Of Treatment: This patient is a 37 year old M presenting to [facility] accompanied by family with a chief complaint of R flank pain that began at 0100. reveals, per radiologist, 3 mm stone at right UVJ causing minimal hydronephrosis. 9 mm stone right kidney and punctate stone left kidney. Hepatomegaly. Unremarkable pancreas and gallbladder. No bowel obstruction, colitis, free fluid or free air. Normal appendix. Small umbilical hernia containing fat. Left inguinal lymphadenopathy, indeterminate. Blood work and UA obtained. In the ED course the patient was given dilaudid, Toradol, fluids, Reglan, and Flomax. Patient will be discharged with prescription for Percocet and flomax and with follow up from PCP and urology. The patient is agreeable with this plan. - Diagnoses Provider Diagnoses: Right ureteral stone, Biliary colic Discharge - Sign-Out/Discharge Documenting (check all that apply): Discharge/Admit/Transfer - Discharge home - Discharge Plan Condition: Stable Disposition: HOME Prescriptions: oxyCODONE/Acetamin 5/325 MG* [Percocet 5/325 TAB*] 1 tab PO Q6H PRN #14 tab MDD 4 PRN Reason: Pain Tamsulosin CAP* [Flomax CAP*] 0.4 mg PO DAILY #7 cap Patient Education Materials: Kidney Stones (ED), Oxycodone/Acetaminophen (By mouth) Referrals: Vj Zeng MD [Medical Doctor] - 2 Days [facility]ERR[facility] [Outside] - 2 Days Additional Instructions: RETURN TO THE EMERGENCY DEPARTMENT FOR NEW OR WORSENING SYMPTOMS The documentation as recorded by the Susy barr Emily accurately reflects the service I personally performed and the decisions made by , Leon Garcia MD.
--- NOTE | 2017-10-20 07:55 | RAD ---
INDICATION: Left lower quadrant pain COMPARISON: None TECHNIQUE: Noncontrast axial source images were acquired from the level hemidiaphragms to the symphysis pubis as part of CT imaging for renal stone. Lung bases: The lung bases are clear. Liver: The liver is normal in size. Noncontrast imaging shows no evidence of a hepatic mass or ductal dilatation. Gallbladder: There are no calcified gallstones. There is no evidence of wall thickening or pericholecystic fluid.. Spleen: The spleen is normal in size. The noncontrast CT appearance is normal. Pancreas: Noncontrast imaging shows no pancreatic mass or ductal dilitation. Adrenal glands: No masses are identified. Kidneys/Bladder: There is an obstructive 3 mm calculus at the right UVJ. There is an additional nonobstructive 6 mm calculus in midpole region of the right kidney. There is no other evidence of urolithiasis. There is no renal mass on noncontrast evaluation. Adenopathy: There is no evidence of intraperitoneal or retroperitoneal adenopathy. Evaluation is limited without oral contrast. Fluid collections: There are no free or localized fluid collections. Vessels: The aorta and iliac vessels are normal in caliber. There are no significant atherosclerotic changes. The IVC appears normal Pelvic organs: The prostate and seminal vesicles appear normal GI tract: Evaluation of the bowel is limited without oral contrast. The stomach, small bowel, and lower GI tract appear grossly normal. There are no obstructive findings. The appendix is visualized and appears normal. Soft tissues: There is a tiny, fat-containing, periumbilical hernia. Osseous structures: There are no acute osseous findings. IMPRESSION: MILD TO MODERATE OBSTRUCTION SECONDARY TO A 3 MM RIGHT UVJ CALCULUS. ADDITIONAL NONOBSTRUCTIVE 6 MM RIGHT RENAL CALCULUS
== END 2017-10-20 04:10 | disposition home or self-care (01) ==
LOC: ED 01:23
DX: N20.2 Calculus of kidney with calculus of ureter (principal); K80.50 Calculus of bile duct without cholangitis or cholecystitis without obstruction; K42.9 Umbilical hernia without obstruction or gangrene; R59.0 Localized enlarged lymph nodes; F17.210 Nicotine dependence, cigarettes, uncomplicated
CPT/HCPCS: 36415; 74176; 80053; 81003; 81015; 82150; 83690; 83735; 85025; 85060; 85610; 85730; 86140; 87086; 96361; 96374; 96375; 99283; A9270-GY; J1170; J1885; J2765

== ENCOUNTER 2018-03-15 19:58 | Emergency (ER) | payer OTHER ==
[2018-03-15] MEDS ORDERED: NS 0.9% 1000 ML* 3,000 ML IV ONE (21:22)
[2018-03-15] MEDS ORDERED: Acetaminophen TAB* 325 MG PO ONE (21:24)
--- NOTE | 2018-03-15 21:28 | ED ---
Abdominal Pain/Male - HPI Summary HPI Summary: A 37 y/o male presents to the ED c/o diarrhea since 03/13/2018. He states that his diarrhea is watery and feels acidic. He rates his pain as 6/10. He also endorses fever, chills, MESSER, joint pain and intermittent abd pain. He denies N/ V. He denies abx use. He has a Hx of a kidney stone and reports he recently had laryngitis. He denies abx use. - History of Current Complaint Chief Complaint: EDGeneral Stated Complaint: UNABLE TO URINATE/DIARRHEA Time Seen by Provider: 03/15/18 21:13 Hx Obtained From: Patient Onset/Duration: Sudden Onset, Lasting Days, Still Present Timing: Constant Severity Initially: Moderate Severity Currently: Moderate Pain Intensity: 6 Pain Scale Used: 0-10 Numeric Associated Signs And Symptoms: Positive: Diarrhea. Negative: Nausea, Vomiting - Allergies/Home Medications Allergies/Adverse Reactions: Allergies Allergy/AdvReac Type Severity Reaction Status Date / Time Egg Derived Allergy GI Upset Verified 03/15/18 20:08 PMH/Surg Hx/FS Hx/Imm Hx Endocrine/Hematology History: Denies: Hx Diabetes, Hx Thyroid Disease Cardiovascular History: Denies: Hx Hypertension - family hx Respiratory History: Denies: Hx Asthma, Hx Chronic Obstructive Pulmonary Disease (COPD) GI History: Denies: Hx Ulcer - Surgical History Surgery Procedure, Year, and Place: t&a. wisdom teeth Infectious Disease History: No Infectious Disease History: Denies: Hx Clostridium Difficile, Hx Hepatitis, Hx Human Immunodeficiency Virus (HIV), Hx of Known/Suspected MRSA, Hx Shingles, Hx Tuberculosis, Hx Known/ Suspected VRE, Hx Known/Suspected VRSA, History Other Infectious Disease, Traveled Outside the [place] in Last 30 Days - Family History Known Family History: Positive: Hypertension Negative: Blood Disorder Family History: FHx of HTN and hemochromatosis. - Social History Alcohol Use: Occasionally Alcohol Amount: x1 Hx Substance Use: No Substance Use Type: Reports: None Substance Use Comment - Amount & Last Used: once monthly Hx Tobacco Use: No Smoking Status (MU): Light Every Day Tobacco Smoker Type: Cigarettes Amount Used/How Often: smokes 6-7 cigarettes 1 day per week, Review of Systems Positive: Fever, Chills Positive: Abdominal Pain, Diarrhea. Negative: Vomiting, Nausea Positive: Arthralgia - joint pain Positive: Headache All Other Systems Reviewed And Are Negative: Yes Physical Exam - Summary Physical Exam Summary: VITAL SIGNS: Reviewed. GENERAL: Patient is a well-developed and nourished MALE who is lying comfortable in the stretcher. Patient is not in any acute respiratory distress. HEAD AND FACE: No signs of trauma. No ecchymosis, hematomas or skull depressions. No sinus tenderness. EYES: PERRLA, EOMI x 2, No injected conjunctiva, no nystagmus. EARS: Hearing grossly intact. Ear canals and tympanic membranes are within normal limits. MOUTH: Oropharynx within normal limits. NECK: Supple, trachea is midline, no adenopathy, no JVD, no carotid bruit, no c- spine tenderness, neck with full ROM. CHEST: Symmetric, no tenderness at palpation LUNGS: Clear to auscultation bilaterally. No wheezing or crackles. CVS: Regular rate and rhythm, S1 and S2 present, no murmurs or gallops appreciated. ABDOMEN: Abd distended. Decreased bowel sounds. EXTREMITIES: FROM in all major joints, no edema, no cyanosis or clubbing. NEURO: Alert and oriented x 3. No acute neurological deficits. Speech is normal and follows commands. SKIN: Dry and warm Triage Information Reviewed: Yes Vital Signs On Initial Exam: Initial Vitals Temp Pulse Resp BP Pulse Ox 102.5 F 111 18 121/99 100 03/15/18 20:05 03/15/18 20:05 03/15/18 20:05 03/15/18 20:05 03/15/18 20:05 Vital Signs Reviewed: Yes Diagnostics - Vital Signs Vital Signs Temp Pulse Resp BP Pulse Ox 03/15/18 20:05 102.5 F 111 18 121/99 100 - Laboratory Result Diagrams: 03/15/18 21:43 03/15/18 21:43 Lab Statement: Any lab studies that have been ordered have been reviewed, and results considered in the medical decision making process. - CT abdomen pelvis CT Interpretation Completed By: Radiologist - 1. Inflammatory/infectious colitis and terminal ileitis. 2. Small appendicolith without other CT findings of appendicitis. ED physician has reviewed this imaging report. Re-Evaluation - Re-Evaluation First Eval Re-Evaluation Time: 00:45 Change: Unchanged Comment: Patient was sleeping and went to the bathroom one time. He did not save stool for stool samples. Abdominal Pain Fem Course/Dx - Course Course Of Treatment: A 37 y/o male presents to the ED c/o diarrhea since 2017. He states that his diarrhea is watery and feels acidic. He rates his pain as 6/10. He also endorses fever, chills, MESSER, joint pain and intermittent abd pain. He denies N/V. He denies abx use. He has a Hx of a kidney stone and reports he recently had laryngitis. He denies abx use. Lab results were obtained and his lactic acid was remarkable at 2.4. CT abdomen/pelvis impression : 1. Inflammatory/infectious colitis and terminal ileitis. 2. Small appendicolith without other CT findings of appendicitis. The fact that the patient has been having these symptoms for 3 days and has a fever means the patient will be treated with abx for one week. Dx: diarrhea. The patient was discharged home with prescriptions for Motrin, Levaquin and Flagyl. The patient was given instrutions to follow up with his PCP in 1-2 days and is agreeable with this plan. - Diagnoses Provider Diagnoses: Diarrhea Discharge - Sign-Out/Discharge Documenting (check all that apply): Patient Departure - DC - Discharge Plan Condition: Stable Disposition: HOME Prescriptions: Ibuprofen TAB* [Motrin TAB* 800 MG] 800 mg PO Q6H PRN #30 tab PRN Reason: Fever Levofloxacin TAB* [Levaquin TAB*] 500 mg PO DAILY #7 tab metroNIDAZOLE [Flagyl 500 MG TAB] 500 mg PO TID #20 tab Patient Education Materials: Acute Diarrhea (ED) Referrals: [facility] [place] [facility] [Outside] (1-2 days) Additional Instructions: RETURN TO THE EMERGENCY DEPARTMENT FOR CHANGING OR WORSENING SYMPTOMS. FOLLOW UP WITH PCP IN 1-2 DAYS. - Attestation Statements Document Initiated by Scribe: Yes Documenting Scribe: Andrés Maraidaga Provider For Whom Cassibe is Documenting (Include Credential): Leon Garcia MD Scribe Attestation: Andrés Adhikari, scribed for Leon Garcia MD on 03/16/18 at 0135.
[2018-03-15 21:52] LABS: ABS Basophils 0 10^3/ul (0-0.2); ABS Eosinophils 0.1 10^3/ul (0-0.6); ABS Lymphocytes 1.4 10^3/ul (1.0-4.8); ABS Monocytes 0.7 10^3/ul (0-0.8); ABS Neutrophils 5.1 10^3/ul (1.5-7.7); ABS Nucleated RBC 0 10^3/ul; Eosinophil % 1.6 % (0-6); Hematocrit 46 % (42-52); Hemoglobin 15.9 g/dl (14.0-18.0); Lymphocyte % 18.8 % (25-47); Mean Corpuscular HGB Conc 35 g/dl (31-36); Mean Corpuscular Hemoglobin 31 pg (27-31); Mean Corpuscular Volume 90 fL (80-94); Mean Platelet Volume 7.8 fL (7.4-10.4); Nucleated Red Blood Cells % 0.2; Platelet Count 207 10^3/ul (150-450); Red Blood Count 5.06 10^6/ul (4.00-5.40); Red Cell Distribution Width 14 % (10.5-15); White Blood Count 7.2 10^3/ul (3.5-10.8)
[2018-03-15 22:01] LABS: INR 0.94 (0.77-1.02)
[2018-03-15 22:08] LABS: EGFR Non-African American 71.6 (>60)
[2018-03-15 22:42] LABS: Urine Appearance Cloudy; Urine Blood 1+ (Negative); Urine Color Yellow; Urine Ketones Negative (Negative); Urine Protein Negative (Negative); Urine Red Blood Cell Trace(0-2/hpf) (Absent); Urine Specific Gravity 1.023 (1.010-1.030); Urine Urobilinogen Negative (Negative); Urine White Blood Cell Trace(0-5/hpf) (Absent)
[2018-03-15] MEDS ORDERED: Iohexol 300* (CONTRAST) 10 ML SDV IV ONE ×2 (23:00→23:21)
[2018-03-16] MEDS ORDERED: Levofloxacin TAB* 500 MG PO ONE (00:46)
[2018-03-16] MEDS ORDERED: metroNIDAZOLE TAB* 250 MG PO ONE (00:46)
[2018-03-16 02:00] VITALS: BP 142/88
--- NOTE | 2018-03-17 15:43 | ED ---
Progress - Progress Note Progress Note: Patient's stool culture is negative for blood as well as infection however is positive by immunoassay. He was given Levaquin and Flagyl at discharge for acute diarrhea. No change in treatment at this time. Re-Evaluation - Re-Evaluation First Eval Re-Evaluation Time: 00:45 Change: Unchanged Comment: Patient was sleeping and went to the bathroom one time. He did not save stool for stool samples. Course/Dx - Course Course Of Treatment: A 37 y/o male presents to the ED c/o diarrhea since 2017. He states that his diarrhea is watery and feels acidic. He rates his pain as 6/10. He also endorses fever, chills, MESSER, joint pain and intermittent abd pain. He denies N/V. He denies abx use. He has a Hx of a kidney stone and reports he recently had laryngitis. He denies abx use. Lab results were obtained and his lactic acid was remarkable at 2.4. CT abdomen/pelvis impression : 1. Inflammatory/infectious colitis and terminal ileitis. 2. Small appendicolith without other CT findings of appendicitis. The fact that the patient has been having these symptoms for 3 days and has a fever means the patient will be treated with abx for one week. Dx: diarrhea. The patient was discharged home with prescriptions for Motrin, Levaquin and Flagyl. The patient was given instrutions to follow up with his PCP in 1-2 days and is agreeable with this plan. - Diagnoses Provider Diagnoses: Diarrhea Discharge - Sign-Out/Discharge Documenting (check all that apply): Post-Discharge Follow Up - Discharge Plan Condition: Stable Disposition: HOME Prescriptions: Ibuprofen TAB* [Motrin TAB* 800 MG] 800 mg PO Q6H PRN #30 tab PRN Reason: Fever Levofloxacin TAB* [Levaquin TAB*] 500 mg PO DAILY #7 tab metroNIDAZOLE [Flagyl 500 MG TAB] 500 mg PO TID #20 tab Patient Education Materials: Acute Diarrhea (ED) Referrals: [facility] [place] [facility] [Outside] (1-2 days) Additional Instructions: RETURN TO THE EMERGENCY DEPARTMENT FOR CHANGING OR WORSENING SYMPTOMS. FOLLOW UP WITH PCP IN 1-2 DAYS. - Billing Disposition and Condition Condition: STABLE Disposition: Home
== END 2018-03-16 02:10 | disposition home or self-care (01) ==
LOC: ED 19:58
DX: R19.7 Diarrhea, unspecified (principal); R50.9 Fever, unspecified; R51 Headache; M25.50 Pain in unspecified joint; Z87.442 Personal history of urinary calculi; F17.210 Nicotine dependence, cigarettes, uncomplicated
CPT/HCPCS: 36415; 74177; 80053; 81003; 81015; 82270; 83605; 83630; 84484; 85025; 85610; 85730; 86140; 86617; 86618; 87040; 87045; 87046; 87077; 87086; 87493; 87899; 96360; 96361; 99285; A9270-GY; Q9967

== ENCOUNTER 2018-09-01 15:45 | Emergency (ER) | payer SELFPAY ==
[2018-09-01] MEDS ORDERED: DOXYcycline CAP(*) 100 MG PO ONE (16:57)
[2018-09-01 17:02] VITALS: BP 138/102
--- NOTE | 2018-09-01 17:02 | UC ---
Skin Complaint HPI - HPI Summary HPI Summary: 37 y/o male presents to the urgent care c/o tick bite since yesterday on his RLQ abdomen. He pulled it out, but he doesn't know how long he has been there. 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 He states in the past he has never been tested for Lyme, but has always been given Doxycycline full treatment. Pt states tick wasn't engorged. Pt denies fever, Milligan, joint pains, SOB, dizziness, chest pain, abdominal pain, N/V/D. - History of Current Complaint Chief Complaint: UCSkin Time Seen by Provider: 09/01/18 16:42 Stated Complaint: TICK Hx Obtained From: Patient Onset/Duration: Sudden Onset, Lasting Days - 1 day, Resolved - removed tick Skin Exposure Onset/Duration: Days Ago - 1 day Timing: Constant Onset Severity: Mild Current Severity: Mild Pain Intensity: 2 Pain Scale Used: 0-10 Numeric Location: Discrete - RLQ abdomen tick bite Character: Pruritus, Redness Aggravating Factor(s): Touch Alleviating Factor(s): Other - tick removal Associated Signs & Symptoms: Positive: Rash - tick bite on RLQ abdomen. Negative: Fever, Chills Related History: Possible Reaction to: Insect - Allergy/Home Medications Allergies/Adverse Reactions: Allergies Allergy/AdvReac Type Severity Reaction Status Date / Time Egg Derived Allergy GI Upset Verified 09/01/18 16:50 PMH/Surg Hx/FS Hx/Imm Hx Previously Healthy: Yes - Pt denies PMHX - Surgical History Surgical History: Yes Surgery Procedure, Year, and Place: t&a. wisdom teeth - Family History Known Family History: Positive: Hypertension Negative: Blood Disorder Family History: FHx of HTN and hemochromatosis. - Social History Occupation: Employed Full-time Lives: With Family Alcohol Use: Daily Alcohol Amount: 1 or 2 drinks Substance Use Type: None Substance Use Comment - Amount & Last Used: once monthly Smoking Status (MU): Light Every Day Tobacco Smoker Type: Cigarettes Amount Used/How Often: smokes 6-7 cigarettes 1 day per week, Household Exposure Type: Cigarettes Review of Systems All Other Systems Reviewed And Are Negative: Yes Constitutional: Positive: Negative Skin: Positive: Other - tick bite on RLQ abdomen tick is not longer present Eyes: Positive: Negative ENT: Positive: Negative Respiratory: Positive: Negative Cardiovascular: Positive: Negative Gastrointestinal: Positive: Negative Genitourinary: Positive: Negative Motor: Positive: Negative Neurovascular: Positive: Negative Musculoskeletal: Positive: Negative Neurological: Positive: Negative Psychological: Positive: Negative Is Patient Immunocompromised?: No Physical Exam - Summary Physical Exam Summary: Vital Signs Reviewed: Yes General: well developed, well nourished obese male sitting in the examining table w/o any apparent distress. Eyes: Positive: Conjunctiva Clear - PERRLA, EOMI ENT: Positive: Normal ENT inspection, Hearing grossly normal, Pharynx normal, TMs normal Neck: Positive: Supple, Nontender, No Lymphadenopathy Respiratory: Positive: Chest nontender, Lungs clear, Normal breath sounds Cardiovascular: Positive: RRR, No Murmur, Pulses Normal Abdomen Description: Positive: Nontender, No Organomegaly, Soft. Negative: CVA Tenderness (R), CVA Tenderness (L) Bowel Sounds: Positive: Present Musculoskeletal: Positive: Strength Intact, ROM Intact, No Edema Neurological Exam: Normal Psychological Exam: Normal Skin: Positive: rashes - RLQ of abdomen with tick bite with surrounding erythema , non tender to palpation. tick no longer present, no swelling or drainage observed. Triage Information Reviewed: Yes Vital Signs: Initial Vital Signs Temp 97.4 F 09/01/18 16:41 Pulse 86 09/01/18 16:41 Resp 16 09/01/18 16:41 BP 160/111 09/01/18 16:41 Pulse Ox 99 09/01/18 16:41 Course/Dx - Course Course Of Treatment: 37 y/o male presents to the urgent care c/o tick bite since yesterday on his RLQ abdomen. He pulled it out, but he doesn't know how long he has been there. 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 He states in the past he has never been tested for Lyme, but has always been given Doxycycline full treatment. Pt states tick wasn't engorged. Pt denies fever, Milligan, joint pains, SOB, dizziness, chest pain, abdominal pain, N/V/D. Hx obtained. Pt w/ tick bite on his RLQ abdomen on examination. After tick bite area cleaned w/ alcohol swabs. Antibiotic prophylaxis with Doxycycline PO given to the patient to prevent lyme Disease. Pt tolerated well medication. Pt advised to observe the area for the development or Erythema Migrans for upto 30 days following exposure. Advised if he develops fever or erythema Migrans to return to the clinic or PCP for further treatment .Pt's BP is elevated today advised to decrease salt in diet, monitor BP and f/u with PCP for further management. D/c instructions explained Pt understood and agreed with plan of care. - Differential Diagnoses - Skin Complaint Differential Diagnoses: Abscess, Cellulitis, Contact Dermatitis, Local Allergic Reaction, Tick Born Illness, Other - bee sting, insect bite - Diagnoses Provider Diagnosis: Tick bite of abdominal wall, Elevated BP without diagnosis of hypertension Discharge - Sign-Out/Discharge Documenting (check all that apply): Patient Departure - d/c home All imaging exams completed and their final reports reviewed: No Studies - Discharge Plan Condition: Stable Disposition: HOME Patient Education Materials: Tick Bite (ED), Low-Sodium Diet (ED) Referrals: [facility] [place] [facility]ERR[facility] [Outside] - 3 Days Additional Instructions: 1- Please observe the area for the development or Erythema Migrans for upto 30 days following exposure. Components of the tick saliva can cause transient erythema that should not be confused with Erythema Migrans. If you develop the bull's eye rash, fever, joint pains please return to the urgent care or f/u with your PCP for further management. 2-Antibiotic prophylaxis with Doxycycline was given to you today to prevent Lyme Disease. Lyme serology can be drawn in 2 weeks with your PCP form the [facility] [place] network or DR Pace to r/o Lyme disease since there is probability of negative results at early exposure. 3-Your BP is elevated today. Please take your BP medications and decrease salt in your diet, monitor BP and if it continues to be elevated please f/u with your PCP or one from the [facility] [place] network for further management. If you develop chest pain, dizziness, visual disturbances, SOB, or severe MILLIGAN please go immediately to the ER for further management - Billing Disposition and Condition Condition: STABLE Disposition: Home - Attestation Statements Provider Attestation: I was available for consult. This patient was seen by the HUNTER. The patient was not presented to, seen by, or examined by me. -Margo
== END 2018-09-01 17:30 | disposition home or self-care (01) ==
LOC: UCEAST 15:45
DX: S30.861A Insect bite (nonvenomous) of abdominal wall, initial encounter (principal); R21 Rash and other nonspecific skin eruption; W57.XXXA Bitten or stung by nonvenomous insect and other nonvenomous arthropods, initial encounter; Y92.9 Unspecified place or not applicable; R03.0 Elevated blood-pressure reading, without diagnosis of hypertension; Z91.012 Allergy to eggs; Z82.49 Family history of ischemic heart disease and other diseases of the circulatory system; Z83.49 Family history of other endocrine, nutritional and metabolic diseases; F17.210 Nicotine dependence, cigarettes, uncomplicated
CPT/HCPCS: 99212; A9270-GY; G0463

== ENCOUNTER 2018-09-30 13:00 | Emergency (ER) | payer SELFPAY ==
[2018-09-30 13:40] VITALS: BP 164/116
[2018-09-30] MEDS ORDERED: DOXYcycline CAP(*) 100 MG PO ONE (13:49)
--- NOTE | 2018-09-30 13:53 | UC ---
Bite Injury/Animal HPI - HPI Summary HPI Summary: Pt is 37 y/o male with tick bite. He states he removed the tick from his lower left back yesterday, and that when he did the tick was engorged and had likely been on him for 2 days. Denies fevers, chills, rashes, joint paints, nausea, vomiting, abdominal pain, headache. States he has required prophylactic doxycycline previously and requests another dose today. - History of Current Complaint Chief Complaint: Tomasz Stated Complaint: TICK BITE Time Seen by Provider: 09/30/18 13:44 Hx Obtained From: Patient Severity Currently: None Pain Intensity: 0 Pain Scale Used: 0-10 Numeric Aggravating Factor(s): Nothing Alleviating Factor(s): Nothing Associated Signs And Symptoms: Negative: Fever - Allergies/Home Medications Allergies/Adverse Reactions: Allergies Allergy/AdvReac Type Severity Reaction Status Date / Time Egg Derived Allergy GI Upset Verified 09/30/18 13:40 PMH/Surg Hx/FS Hx/Imm Hx Previously Healthy: Yes - Surgical History Surgical History: Yes Surgery Procedure, Year, and Place: t&a. wisdom teeth - Family History Known Family History: Positive: Hypertension Negative: Blood Disorder Family History: FHx of HTN and hemochromatosis. - Social History Alcohol Use: Daily Alcohol Amount: 1 or 2 drinks Substance Use Type: None Substance Use Comment - Amount & Last Used: once monthly Smoking Status (MU): Light Every Day Tobacco Smoker Type: Cigarettes Amount Used/How Often: smokes 6-7 cigarettes 1 day per week, Household Exposure Type: Cigarettes Review of Systems All Other Systems Reviewed And Are Negative: Yes Constitutional: Negative: Fever, Chills Skin: Negative: Rash Gastrointestinal: Negative: Abdominal Pain, Vomiting, Nausea Musculoskeletal: Negative: Arthralgia Neurological: Negative: Headache Physical Exam Triage Information Reviewed: Yes Appearance: Well-Appearing, No Pain Distress Vital Signs: Initial Vital Signs Temp 98 F 09/30/18 13:37 Pulse 88 09/30/18 13:37 Resp 17 09/30/18 13:37 BP 164/116 09/30/18 13:37 Pulse Ox 100 09/30/18 13:37 Vital Signs Reviewed: Yes Eye Exam: Normal ENT Exam: Normal Dental Exam: Normal Neck exam: Normal Respiratory Exam: Normal Respiratory: Positive: Lungs clear Cardiovascular Exam: Normal Cardiovascular: Positive: RRR Abdominal Exam: Normal Musculoskeletal Exam: Normal Neurological Exam: Normal Psychological Exam: Normal Skin: Positive: Other - Scabbed area to lower left back, consistent with where patient states he removed the tick. No erythema, tenderness, warmth, edema, drainage, or streaking. Bite Injury Course/Dx - Course Course Of Treatment: 37 y/o otherwise male tick bite to left lower back x 2 days, without Lyme symptoms. Provided prophylactic doxycycline dose today. Instructed to monitor for fevers, rashes, headache, joint pains and to return with new/worsening symptoms. Patient counseled on smoking cessation. Patient seen in collaboration with the physician library assistant student. - Differential Dx/Diagnosis Provider Diagnosis: Tick bite of back Discharge - Sign-Out/Discharge Documenting (check all that apply): Patient Departure All imaging exams completed and their final reports reviewed: No Studies - Discharge Plan Condition: Improved Disposition: HOME Patient Education Materials: Tick Bite (ED) Referrals: [facility] [Outside] [facility] [place] [facility] [Outside] No Primary Care Phys,NOPCP [Primary Care Provider] - Additional Instructions: Return with fever, expanding red rash, joint pains, worse, new symptoms or other concerns. Be sure to check your body anytime you are out in the yard or ortiz for ticks. - Billing Disposition and Condition Condition: IMPROVED Disposition: Home - Attestation Statements Document Initiated by Rochelle: Yes Documenting Scribe: ALYSSIA Krueger Provider For Whom Nadegee is Documenting (Include Credential): Dr. Ko Ramirez Scribe Attestation: Anayeli Adhikari PA-S, scribed for Dr. Ko Ramirez on 09/30/18 at 1410. Scribe Documentation Reviewed: Yes Provider Attestation: The documentation as recorded by the Anayeli barr PA-S accurately reflects the service I personally performed and the decisions made by Dr. Ko esquivel Status of Scribe Document: Viewed
== END 2018-09-30 14:00 | disposition home or self-care (01) ==
LOC: UCEAST 13:00
DX: T63.481A Toxic effect of venom of other arthropod, accidental (unintentional), initial encounter (principal); F17.210 Nicotine dependence, cigarettes, uncomplicated
CPT/HCPCS: 99212; A9270-GY; G0463

== ENCOUNTER 2019-02-22 17:44 | Emergency (ER) | payer SELFPAY ==
[2019-02-22 18:33] VITALS: BP 156/110
--- NOTE | 2019-02-22 19:21 | UC ---
Ear Complaint HPI - HPI Summary HPI Summary: [facility]--patient has a history of cerumen impaction and believes he has the same now - History of Current Complaint Chief Complaint: UCEar Stated Complaint: ear ache Time Seen by Provider: 02/22/19 19:11 Hx Obtained From: Patient Onset/Duration: Gradual Onset, Lasting Days Pain Intensity: 3 Pain Scale Used: 0-10 Numeric Associated Signs/Symptoms: Positive: Hearing Loss - Allergies/Home Medications Allergies/Adverse Reactions: Allergies Allergy/AdvReac Type Severity Reaction Status Date / Time Egg Derived Allergy GI Upset Verified 02/22/19 18:33 PMH/Surg Hx/FS Hx/Imm Hx Previously Healthy: No - Surgical History Surgical History: Yes Surgery Procedure, Year, and Place: t&a. wisdom teeth - Family History Known Family History: Positive: Hypertension Negative: Blood Disorder Family History: FHx of HTN and hemochromatosis. - Social History Occupation: Works From/At Home Lives: With Family Alcohol Use: Daily Alcohol Amount: 1 or 2 drinks Substance Use Type: None Substance Use Comment - Amount & Last Used: once monthly Smoking Status (MU): Light Every Day Tobacco Smoker Type: Cigarettes Amount Used/How Often: smokes 6-7 cigarettes 1 day per week, Household Exposure Type: Cigarettes Review of Systems All Other Systems Reviewed And Are Negative: Yes Constitutional: Positive: Negative Skin: Positive: Negative Eyes: Positive: Negative ENT: Positive: Ear Ache Respiratory: Positive: Negative Cardiovascular: Positive: Negative Gastrointestinal: Positive: Negative Genitourinary: Positive: Negative Motor: Positive: Negative Neurovascular: Positive: Negative Musculoskeletal: Positive: Negative Neurological: Positive: Negative Psychological: Positive: Negative Is Patient Immunocompromised?: Yes Physical Exam Triage Information Reviewed: Yes Appearance: Well-Appearing, No Pain Distress, Well-Nourished Vital Signs: Initial Vital Signs Temp 98.3 F 02/22/19 18:25 Pulse 82 02/22/19 18:25 Resp 18 02/22/19 18:25 BP 156/110 02/22/19 18:25 Pulse Ox 97 02/22/19 18:25 Vital Signs Reviewed: Yes Eye Exam: Normal Eyes: Positive: Conjunctiva Clear ENT Exam: Normal ENT: Positive: Normal ENT inspection, Hearing grossly normal, Pharynx normal, TMs normal - after irragation, Other - bilateral cerumen impaction. Negative: Nasal congestion, Trismus, Muffled voice, Hoarse voice, Dental tenderness, Sinus tenderness Dental Exam: Normal Neck exam: Normal Neck: Positive: Supple, Nontender Respiratory Exam: Normal Respiratory: Positive: Chest non-tender, No respiratory distress, No accessory muscle use Cardiovascular Exam: Normal Cardiovascular: Positive: RRR, Pulses Normal, Brisk Capillary Refill Musculoskeletal Exam: Normal Musculoskeletal: Positive: Strength Intact, ROM Intact Neurological Exam: Normal Neurological: Positive: Alert, Muscle Tone Normal Psychological Exam: Normal Skin Exam: Normal Ear Complaint Course/Dx - Course Course Of Treatment: patient is not hi/si and is experiencing no DV. But he does report frustration not working at this time---tolerated irrigation well will follow bp with pcp - Differential Dx/Diagnosis Provider Diagnosis: Cerumen impaction Discharge ED - Sign-Out/Discharge Documenting (check all that apply): Patient Departure All imaging exams completed and their final reports reviewed: No Studies - Discharge Plan Condition: Stable Disposition: HOME Patient Education Materials: Cerumen Impaction (ED), Heart Healthy Diet (ED), Hypertension (ED) Referrals: [facility] [Outside] - 3 Days [facility] [Outside] - 3 Days (Blood pressure recheck) [facility] [Outside] - 3 Days - Billing Disposition and Condition Condition: STABLE Disposition: Home
== END 2019-02-22 20:00 | disposition home or self-care (01) ==
LOC: UCEAST 17:44
DX: H61.23 Impacted cerumen, bilateral (principal); Z91.012 Allergy to eggs; F17.210 Nicotine dependence, cigarettes, uncomplicated
CPT/HCPCS: 99213; G0463

== ENCOUNTER 2019-04-27 12:00 | Emergency (ER) | payer SELFPAY ==
[2019-04-27] MEDS ORDERED: Ketorolac INJ* 30 MG/ML 1 ML VIAL IV PUSH ONE (12:32)
[2019-04-27] MEDS ORDERED: NS 0.9% 1000 ML** 1,000 ML IV ONE (12:32)
[2019-04-27 12:42] LABS: ABS Eosinophils 0.2 10^3/ul (0-0.6); ABS Lymphocytes 2.6 10^3/ul (1.0-4.8); ABS Monocytes 0.9 10^3/ul (0-0.8); ABS Neutrophils 6.1 10^3/ul (1.5-7.7); Eosinophil % 1.8 %; Hematocrit 45 % (42-52); Lymphocyte % 26.5 %; Mean Corpuscular HGB Conc 35 g/dL (31-36); Mean Corpuscular Hemoglobin 32 pg (27-31); Mean Corpuscular Volume 91 fL (80-94); Mean Platelet Volume 7.9 fL (7.4-10.4); Nucleated Red Blood Cells % 0.1; Platelet Count 265 10^3/uL (150-450); Red Blood Count 4.95 10^6 /uL (4.18-5.48); Red Cell Distribution Width 13 % (10-15); White Blood Count 9.7 10^3/uL (3.5-10.8)
--- NOTE | 2019-04-27 12:46 | ED ---
Abdominal Pain/Male - HPI Summary HPI Summary: 38 y/o male presented to [facility] complaining of constant right flank pain and constant right testicle pain rated 6/10 in intensity. Patient had initially denied vomiting but while in ED he had an episode of emesis. Patient notes he had a kidney stone in summer of 2017. Patient was followed by urology and was placed on Flomax. He states that this pain is less sharp and lower compared to his pervious kidney stone. Current pain has been similar since . He states that this pain has been constant and mild but has worsened and Elizabeth Cooper, when he consumed an excess of alcohol. PSHx of tonsillectomy and wisdom teeth removal noted. Pt denies any fever, chills, erythema of eyes, sore throat, CP, SOB, cough, abdominal pain, dysuria, hematuria, myalgia, edema , rash, or dizziness. - History of Current Complaint Chief Complaint: EDFlankPain Stated Complaint: FLANK PAIN PER PT Time Seen by Provider: 04/27/19 12:24 Hx Obtained From: Patient Onset/Duration: Lasting Weeks, Still Present Timing: Constant, Lasting Weeks Severity Initially: Severe - Triage note states pain scale at 8 Severity Currently: Severe Pain Intensity: 6 Pain Scale Used: 0-10 Numeric Location: Flank, Other - right testicle Character: Sharp Aggravating Factor(s): Other: - alcohol consumption Associated Signs And Symptoms: Positive: Vomiting, Other - negative - sore throat, erythema of eyes, chills, SOB, edema, myalgia, rash, dizziness,. Negative: Fever, Cough, Chest Pain, Dizzy, Urinary Symptoms, Nausea, Diarrhea - Allergies/Home Medications Allergies/Adverse Reactions: Allergies Allergy/AdvReac Type Severity Reaction Status Date / Time No Known Allergies Allergy Verified 04/27/19 12:06 PMH/Surg Hx/FS Hx/Imm Hx Endocrine/Hematology History: Denies: Hx Diabetes, Hx Thyroid Disease Cardiovascular History: Reports: Hx Hypertension - not on meds Respiratory History: Denies: Hx Asthma, Hx Chronic Obstructive Pulmonary Disease (COPD) GI History: Denies: Hx Ulcer - Surgical History Surgery Procedure, Year, and Place: t&a. wisdom teeth Infectious Disease History: No Infectious Disease History: Denies: Hx Clostridium Difficile, Hx Hepatitis, Hx Human Immunodeficiency Virus (HIV), Hx of Known/Suspected MRSA, Hx Shingles, Hx Tuberculosis, Hx Known/ Suspected VRE, Hx Known/Suspected VRSA, History Other Infectious Disease, Traveled Outside the [place] in Last 30 Days - Family History Known Family History: Positive: Hypertension Negative: Blood Disorder Family History: FHx of HTN and hemochromatosis. - Social History Alcohol Use: Occasionally Alcohol Amount: 1 or 2 drinks Hx Substance Use: No Substance Use Type: Reports: None Substance Use Comment - Amount & Last Used: once monthly Hx Tobacco Use: No Smoking Status (MU): Light Every Day Tobacco Smoker Type: Cigarettes Amount Used/How Often: smokes 6-7 cigarettes 1 day per week, Review of Systems Negative: Fever, Chills Negative: Erythema Negative: Sore Throat Negative: Chest Pain Negative: Shortness Of Breath, Cough Positive: Vomiting. Negative: Abdominal Pain, Diarrhea, Nausea Positive: flank pain, pain - right testicle Negative: Myalgia, Edema Negative: Rash Neurological: Other - negative dizziness All Other Systems Reviewed And Are Negative: Yes Physical Exam - Summary Physical Exam Summary: Constitutional: Well-developed, Well-nourished, Alert. (-) Distressed Skin: Warm, Dry HENT: Normocephalic; Atraumatic Eyes: Conjunctiva normal Neck: Musculoskeletal ROM normal neck. (-) JVD, (-) Stridor, (-) Tracheal deviation Cardio: Rhythm regular, rate normal, Heart sounds normal; Intact distal pulses; The pedal pulses are 2+ and symmetric. Radial pulses are 2+ and symmetric. (-) Murmur Pulmonary/Chest wall: Effort normal. (-) Respiratory distress, (-) Wheezes, (-) Rales Abd: Soft, (+) Right CVA and RLQ tenderness, (-) Distension, (-) Guarding, (-) Rebound, No palpable hernia Musculoskeletal: (-) Edema Lymph: (-) Cervical adenopathy Neuro: Alert, Oriented x3 Psych: Mood and affect Normal exam: attended by nurse Jason; No testicular tenderness, no masses Triage Information Reviewed: Yes Vital Signs On Initial Exam: Initial Vitals Temp Pulse Resp BP Pulse Ox 98.1 F 98 16 157/116 98 04/27/19 12:03 04/27/19 12:03 04/27/19 12:03 04/27/19 12:03 04/27/19 12:03 Vital Signs Reviewed: Yes Procedures - Sedation Patient Received Moderate/Deep Sedation with Procedure: No Diagnostics - Vital Signs Vital Signs Temp Pulse Resp BP Pulse Ox 04/27/19 12:03 98.1 F 98 16 157/116 98 - Laboratory Result Diagrams: 04/27/19 12:33 04/27/19 12:33 Lab Statement: Any lab studies that have been ordered have been reviewed, and results considered in the medical decision making process. - CT abd/pelvis CT Interpretation Completed By: Radiologist Summary of CT Findings: IMPRESSION: 1. LARGE 7 X 10 MM CALCULUS AT THE RIGHT URETEROVESICAL JUNCTION CAUSING MODERATE. HYDRONEPHROSIS. 2. ADDITIONAL SMALL NONOBSTRUCTING BILATERAL RENAL CALCULI. This report was reviewed by the ED physician. - Ultrasound renal Ultrasound Interpretation Completed By: Radiologist Summary of Ultrasound Findings: IMPRESSION: 1. MILD TO MODERATE RIGHT HYDRONEPHROSIS. 2. SMALL NONOBSTRUCTING LEFT RENAL CALCULI. This report was reviewed by the ED physician. Re-Evaluation - Re-Evaluation First Eval Re-Evaluation Time: 14:24 Change: Improved - Pain-free Comment: Patient is pain-free and was updated on the treatment plan. Abdominal Pain Male Course/Dx - Course Course Of Treatment: 38 y/o male presented to [facility] complaining of constant right flank pain and constant right testicle pain rated 6/10 in intensity. Patient had initially denied vomiting but while in ED he had an episode of emesis. Patient notes he had a kidney stone in summer of 2017. Patient was followed by urology and was placed on Flomax. He states that this pain is less sharp and lower compared to his pervious kidney stone. Current pain has been similar since . He states that this pain has been constant and mild but has worsened Thanksgi and Elizabeth Allison, when he consumed an excess of alcohol. Exam showed right CVA and RLQ tenderness and no palpable hernia. exam attended by nurse Jason revealed no testicular tenderness, no masses. ED physician reviewed pts medical record from Sep 2017, CT scan showed two obstructing calculi, one 3mm in the right UVJ and one 6mm in the renal pelvis. Bloodwork shows MCH, abs monos, creatinine, glucose, AST, and ALT are high. UA shows protein, RBC, and Hyaline casts. RENAL US IMPRESSION: 1. MILD TO MODERATE RIGHT HYDRONEPHROSIS. 2. SMALL NONOBSTRUCTING LEFT RENAL CALCULI. CT ABD/PELVIS IMPRESSION: 1. LARGE 7 X 10 MM CALCULUS AT THE RIGHT URETEROVESICAL JUNCTION CAUSING MODERATE. HYDRONEPHROSIS. 2. ADDITIONAL SMALL NONOBSTRUCTING BILATERAL RENAL CALCULI. Pt was given 30mg IV Toradol, 8mg IV Zofran, and 1L IV NaCl. The patient's case was discussed with Dr. Zeng. Dr. Zeng has asked the patient to call the office tomorrow. Dr. Zeng is aware of the 7mm stone. Pt was diagnosed with urethral stone. He was instructed to follow up with urology tomorrow as well as his PCP and to strain his urine. - Diagnoses Provider Diagnoses: Urethral stone - Provider Notifications Discussed Care Of Patient With: Vj Zeng Time Discussed With Above Provider: 17:44 Instructed by Provider To: Other - The patient's case was discussed with Dr. Zeng. Dr. Zeng has asked the patient to call the office tomorrow. Dr. Zeng is aware of the 7mm stone. Discharge ED - Sign-Out/Discharge Documenting (check all that apply): Patient Departure - dc - Discharge Plan Condition: Stable Disposition: HOME Prescriptions: Naproxen TAB* [Naprosyn 250 mg TAB*] 500 mg PO Q8H PRN #20 tab PRN Reason: Pain - Severe oxyCODONE/Acetamin 5/325 MG* [Percocet 5/325 TAB*] 1 tab PO Q6H PRN #8 tab MDD 4 PRN Reason: Pain - Severe Tamsulosin CAP* [Flomax CAP*] 0.4 mg PO DAILY #7 cap Patient Education Materials: Kidney Stones (ED) Referrals: [facility] [Outside] Additional Instructions: Follow up with Urology tomorrow as well as your primacy care physician. You may need to return if you do not pass your stone. Be sure to strain your urine. - Attestation Statements Document Initiated by Scribe: Yes Documenting Scribe: TRINITY HARMON Provider For Whom Scribe is Documenting (Include Credential): ROSSY PARISH MD Scribe Attestation: I, TRINITY HARMON, scribed for ROSSY PARISH MD on 04/27/19 at 2112. Status of Scribe Document: Ready
[2019-04-27] MEDS ORDERED: Ondansetron INJ* 2 MG/ML VIAL IV ONE (12:47)
[2019-04-27 12:58] LABS: Albumin/Globulin Ratio 1.9 (1-3); BUN/Creatinine Ratio 11.1 (8-20); C Reactive Protein 5.16 mg/L (<8.01); Calcium 9.5 mg/dL (8.6-10.3); EGFR African American 72.4 (>60); EGFR Non-African American 59.8 (>60); Globulin 2.7 g/dL (2-4); Potassium 3.9 mmol/L (3.5-5.0); Total Bilirubin 0.5 mg/dL (0.2-1.0); Total Protein 7.7 g/dL (6.4-8.9)
[2019-04-27 14:43] LABS: Urine Appearance Clear; Urine Bilirubin Negative (Negative); Urine Blood Negative (Negative); Urine Color Yellow; Urine Glucose Negative (Negative); Urine Ketones Negative (Negative); Urine Nitrite Negative (Negative); Urine Protein 1+(30 mg/dL) (Negative); Urine Specific Gravity 1.018 (1.010-1.030); Urine Urobilinogen Negative (Negative)
[2019-04-27 14:46] LABS: Urine Bacteria Absent (Absent); Urine Red Blood Cell 1+(3-5/hpf) (Absent); Urine White Blood Cell Trace(0-5/hpf) (Absent)
[2019-04-27 18:15] VITALS: BP 176/117
== END 2019-04-27 18:06 | disposition home or self-care (01) ==
LOC: ED 12:00
DX: N20.1 Calculus of ureter (principal); R10.84 Generalized abdominal pain; R11.10 Vomiting, unspecified; N50.811 Right testicular pain; F17.210 Nicotine dependence, cigarettes, uncomplicated
CPT/HCPCS: 36415; 74176; 76775; 80053; 81003; 81015; 83605; 83690; 85025; 86140; 87086; 96361; 96374; 96375; 99283; J1885; J2405